=== PATIENT | female | born 1935 | race Caucasian/White ===

== ENCOUNTER 2018-12-10 04:13 | Observation (INO) ==
[2018-12-10] MEDS ORDERED: ASPIRIN PO ONE (04:17)
[2018-12-10] MEDS ORDERED: MORPHINE IV ONE (04:21)
[2018-12-10] MEDS ORDERED: NS 500 ML IV ONE (04:27)
[2018-12-10] MEDS ORDERED: ZOFRAN IV ONE (04:27)
[2018-12-10 04:44] LABS: BASO# 0.02 X1000 (0.0-0.2); BASO% 0.4 % (0.0-0.8); EOS# 0.26 X1000 (0.0-0.7); EOS% 5.3 % (0.0-10.0); HEMATOCRIT 37.9 % (37.0-47.0); HEMOGLOBIN 12.7 g/dL (12.0-16.0); LYMPH# 1.15 X1000 (1.2-3.4); LYMPH% 23.6 % (20.5-51.1); MCH 30.2 PG (27-31); MCHC 33.5 g/dL (33-37); MCV 90.2 FL (81-99); MONO# 0.44 X1000 (0.11-0.59); MPV 8.6 FL (7.4-10.4); NEUT# 3.01 X1000 (1.4-6.5); NEUT% 61.7 % (42.2-75.2); PLT 146 X1000 (130-400); RDW 13.2 % (11.5-14.5); WBC 4.88 X1000 (4.8-10.8)
[2018-12-10 04:58] LABS: INR 1.03; PROTIME 13.6 Seconds (11.0-16.0)
[2018-12-10 04:59] LABS: PTT 31.5 Seconds (22.3-41.8)
[2018-12-10 05:18] LABS: AGAP 11; ALB/GLOB RATIO 2.2; ALBUMIN 4.1 g/dL (3.5-5.0); ALKALINE PHOSPHATASE 49 U/L (32-104); BUN 15 mg/dL (8-22); CHLORIDE 104 mmol/L (98-107); CK PROFILE 59 U/L (24-173); COSMO 285; CREATININE 0.7 mg/dL (0.5-0.9); ESTIMATED GFR > 60; GLUCOSE 120 mg/dL (70-104); GOT 15 U/L (10-30); GPT < 5 U/L (10-36); POTASSIUM 3.3 mmol/L (3.5-5.1); SODIUM 142 mmol/L (136-145); TCO2 27 mmol/L (25-35); TOTAL BILIRUBIN 0.88 mg/dL (0.20-1.00)
--- NOTE | 2018-12-10 05:23 | EKG Report ---
Test Performed on : 12/10/2018 04:16:42 AM Test Reason : chest pain Blood Pressure : / mmHG Vent. Rate : 061 BPM Atrial Rate : 061 BPM P-R Int : 170 ms QRS Dur : 094 ms QT Int : 420 ms P-R-T Axes : 086 063 072 degrees QTc Int : 422 ms Sinus rhythm. with premature atrial complexes. Otherwise normal ECG When compared with ECG of 05-SEP-2014 15:51, Sinus rhythm. has replaced Atrial fibrillation. ST elevation has replaced ST depression in Anterior leads Unconfirmed Result
--- NOTE | 2018-12-10 06:07 | PROVIDER DOCUMENTATION ---
HPI-General Adult - General Chief Complaint: Chest Pain Stated Complaint: chest pain Time Seen by Provider: 12/10/18 04:18 Source: patient, family Allergies/Adverse Reactions: Patient Allergies Allergy/AdvReac Type Severity Reaction Status Date / Time methylprednisolone Allergy Severe AFIB Verified 12/10/18 05:28 [From Medrol] Penicillins AdvReac Severe RASH Verified 12/10/18 05:28 Home Medications: Home Medication List Medication Instructions Recorded Confirmed Last Taken Type NK [No Home Medications] 12/10/18 12/10/18 Unknown History - History of Present Illness -Gen Adult Nature of Presenting Problems: Pt presents with cp, started tonight, entire chest, radiation to jaw, sharp, associated with nausea, pt has pmh of afib but denies CAD, pt denies f/c, martin, sob, cough, ap, vomiting, diarrhea, Pt is lying in bed in no acute distress. Location of Pain/Injury: reports: chest Pain Radiation: reports: jaw Quality of Pain: reports: sharp Severity: reports: moderate Onset/Duration: reports: 1-3 hours ago Timing: reports: still present Context/Activities at Onset: reports: none Modifying Factors: improves with: nothing Associated Symptoms: reports: nausea Similar Symptoms Previously?: No Recently seen or treated by another doctor?: No Review of Systems - Adult - REVIEW OF SYSTEMS - ADULT Constitutional: reports: no symptoms reported Eyes: reports: no symptoms reported Ears, Nose, Mouth & Throat: reports: no symptoms reported Cardiovascular: reports: see HPI Respiratory: reports: no symptoms reported Gastrointestinal: reports: no symptoms reported Genitourinary: reports: no symptoms reported Musculoskeletal: reports: no symptoms reported Integumentary: reports: no symptoms reported Neurological: reports: no symptoms reported Psychiatric: reports: no symptoms reported Endocrine: reports: no symptoms reported Hematologic/Lymphatic: reports: no symptoms reported Allergic/Immunologic: reports: no symptoms reported All Other Systems: Reviewed and Negative Past History - Adult - PAST MEDICAL HISTORY-ADULT Review of Records: reports: Old Records Reviewed, Nursing Assessment Review, Medications Reviewed, Social history reviewed & non-contributory. Major Childhood Illnesses: reports: denies history Cardiovascular: reports: A-Fib, other (hiatal hernia) Respiratory: reports: denies history Gastrointestinal: reports: GERD Obstetrical/Gynecological: reports: denies history Genitourinary: reports: denies history Musculoskeletal: reports: denies history Neurological: reports: denies history Psychiatric: reports: denies history Endocrine/Immune: reports: denies history Other Conditions: reports: denies history - PRIOR SURGERIES/PROCEDURES Surgical/Procedure History: reports: other (cataract removal) - IMMUNIZATION STATUS Childhood Immunizations: See Nurse Assessment Flu Vaccine: See Nurse Assessment - FAMILY HISTORY Family History: reviewed, not pertinent Physical Exam-General - PHYSICAL EXAM-ADULT Initial Vital Signs Reviewed: Yes - CONSTITUTIONAL General Appearance: appears well - EYES Eyes: PERRL/EOMI - HEAD, EARS, NOSE, MOUTH & THROAT HENMT: normocephalic/atraumatic - NECK Neck: normal inspection - RESPIRATORY Respiratory: lungs clear, no respiratory distress, no accessory muscle use - CARDIOVASCULAR Cardiovascular: regular rate, rhythm - GASTROINTESTINAL (ABDOMEN) Abdominal Exam: non tender, soft - LYMPHATIC Lymphatic: no adenopathy - MUSCULOSKELETAL Back Exam: normal inspection Extremity: normal range of motion - SKIN Integumentary: normal color - NEUROLOGIC Neurologic: grossly normal - PSYCHIATRIC Psych/Mental Status: normal mood/affect Progress - PLAN OF CARE/RESULTS Progress/Plan/Lab Results: Vital Signs - 8 hr 12/10/18 04:25 Temperature 97.7 F Pulse Rate 68 Respiratory Rate 16 Blood Pressure 170/65 O2 Sat by Pulse Oximetry 96 Laboratory Results - last 24 hr 12/10/18 12/10/18 12/10/18 04:32 04:32 04:32 WBC 4.88 RBC 4.20 Hgb 12.7 Hct 37.9 MCV 90.2 MCH 30.2 MCHC 33.5 RDW Std Deviation 13.2 Plt Count 146 MPV 8.6 Immature Gran % (Auto) 0.0 Neut % (Auto) 61.7 Lymph % (Auto) 23.6 [place]ot % (Auto) 9.0 Eos % (Auto) 5.3 Baso % (Auto) 0.4 Immature Gran # (Auto) 0.00 Neut # (Auto) 3.01 Lymph # (Auto) 1.15 L [place] # (Auto) 0.44 Eos # (Auto) 0.26 Baso # (Auto) 0.02 PT INR PTT (Actin FS) Sodium 142 Potassium 3.3 L Chloride 104 Carbon Dioxide 27 Anion Gap 11 BUN 15 Creatinine 0.7 Estimated GFR/1.73 m2 > 60 BUN/Creatinine Ratio 21 Glucose 120 H Calculated Osmolality 285 Calcium 9.0 Total Bilirubin 0.88 AST 15 ALT < 5 L Alkaline Phosphatase 49 Creatine Kinase 59 Troponin T [facility] Pept 176 Total Protein 6.0 L Albumin 4.1 Globulin 1.9 Albumin/Globulin Ratio 2.2 12/10/18 12/10/18 04:32 04:32 WBC RBC Hgb Hct MCV MCH MCHC RDW Std Deviation Plt Count MPV Immature Gran % (Auto) Neut % (Auto) Lymph % (Auto) [place] % (Auto) Eos % (Auto) Baso % (Auto) Immature Gran # (Auto) Neut # (Auto) Lymph # (Auto) [place]ot # (Auto) Eos # (Auto) Baso # (Auto) PT 13.6 INR 1.03 PTT (Actin FS) 31.5 Sodium Potassium Chloride Carbon Dioxide Anion Gap BUN Creatinine Estimated GFR/1.73 m2 BUN/Creatinine Ratio Glucose Calculated Osmolality Calcium Total Bilirubin AST ALT Alkaline Phosphatase Creatine Kinase Troponin T 0.013 Yhl-J-Mwqasbbyhkv Pept Total Protein Albumin Globulin Albumin/Globulin Ratio Orders Category Date Time Status Cardiac Monitoring DIRECTED Care 12/10/18 04:17 Active Nursing- Obtain EKG ONCE Care 12/10/18 04:14 Active Oxygen Therapy- ED Nursing DIRECTED Care 12/10/18 04:17 Active Saline Loc NOW Care 12/10/18 04:17 Active CHEST-PORTABLE [RAD] Stat Exams 12/10/18 04:18 Taken CBC WITH ELECTRONIC DIFF [HEME] Stat Lab 12/10/18 04:32 Completed CK PROFILE [SP CHEM] Stat Lab 12/10/18 04:32 Completed COMPREHENSIVE METABOLIC PANEL [CHEM] Stat Lab 12/10/18 04:32 Completed PRO B-NATRIURETIC PEPTIDE Stat Lab 12/10/18 04:32 Completed PROTIME WITH INR [COAG] Stat Lab 12/10/18 04:32 Completed PTT [COAG] Stat Lab 12/10/18 04:32 Completed TROPONIN T Stat Lab 12/10/18 04:32 Completed 0.9% Sodium Chloride Inj [Ns] 500 ml Med 12/10/18 04:27 Discontinued IV 999 mls/hr Aspirin Med 12/10/18 04:17 Discontinued 325 mg PO NOW ONE Morphine Med 12/10/18 04:21 Discontinued 4 mg IV NOW ONE Ondansetron [Zofran] Med 12/10/18 04:27 Discontinued 4 mg IV NOW ONE CP/SOB/Palp >45 yrs of Age Stat Oth 12/10/18 04:17 Ordered EKG [EKG] Stat Ther 12/10/18 04:14 Draft Result Diagrams: 12/10/18 04:32 12/10/18 04:32 - CONSULTS/PCP/HOSPITALIST Notification #1 *Consult/PCP/Hospitalist*: Dr Ortega Time Discussed: 07:15 Consult Disposition: Will see in ED Departure - Departure Date of Disposition Decision: 12/10/18 Time of Disposition Decision: 07:22 DIAGNOSIS: Chest pain Disposition: ADMITTED INPATIENT 09 Certified Medical Emergency: Emergent Condition: Fair Referrals and Follow-Ups: Armand Ortega MD [Primary Care Provider] - - Critical Care Note This patient required my direct & personal management of CC.: No Attestation - Physician/ PERICO Attestation Patient care was provided by Advanced Practice Provider:: No The physician spent face to face time with patient:: Yes Advanced Practice Provider documentation review:: Supervising physician onsite and consulted in the evaluation and care of this patient. The physician did have a face to face encounter with the patient.
--- NOTE | 2018-12-10 06:40 | Diag Imaging Result Doc PS360 ---
CHEST-PORTABLE - 12/10/2018 INDICATION: chest pain COMPARISON: 02/03/2015 FINDINGS: Stable hyperexpanded lungs. No infiltrates or edema. Heart size is top normal. No large pleural effusion. Stable granuloma in the left upper lobe. IMPRESSION: COPD. Electronically signed by Rex Douglas 12/10/2018 6:38 AM
[2018-12-10] MEDS ORDERED: KLOR-CON PO ONE ×2 (08:24→14:13)
[2018-12-10] MEDS ORDERED: NS 1,000 ML IV ONE (08:28)
[2018-12-10] MEDS ORDERED: LOVENOX SUBQ SCH ×2 (09:25→14:00)
[2018-12-10 09:36] VITALS: BP 130/50
[2018-12-10] MEDS ORDERED: LOVENOX 1 MG/KG SUBQ ONE (13:41)
[2018-12-10] MEDS ORDERED: LOPRESSOR PO SCH (13:45)
[2018-12-10] MEDS ORDERED: NITROGLYCERIN TOP SCH (13:45)
--- NOTE | 2018-12-10 14:07 | EKG Report ---
Test Performed on : 12/10/2018 1:53:11 PM Test Reason : chest pain, NQWMI Blood Pressure : / mmHG Vent. Rate : 075 BPM Atrial Rate : 065 BPM P-R Int : 000 ms QRS Dur : 088 ms QT Int : 382 ms P-R-T Axes : 000 036 044 degrees QTc Int : 426 ms Accelerated Junctional rhythm. transitioning to sinus rhythm with PACs T wave abnormality, consider anterior ischemia or recent non-MANJULA VT Trace ST elevation V2 Abnormal ECG When compared with ECG of 10-DEC-2018 04:16, (Unconfirmed) Nonspecific T wave abnormality now evident in Inferior leads T wave inversion now evident in Anterior leads Confirmed by John OLIVER, Thony Rodarte ([id number]) on 12/11/2018 8:49:06 AM
--- NOTE | 2018-12-10 14:18 | CARDIOLOGY CONSULTATION ---
DATE: 12/10/2018 HISTORY OF PRESENT ILLNESS: An 83-year-old, lady who has been in good health. Came in with complaints of chest pain radiating to the jaw. The patient has abnormal cardiac enzymes. Cardiology was consulted. She is a healthy lady who, for the last week, has been having mild left-sided chest pain which she did not seek medical attention as it was mild. Subsequently, she went to bed last night. Woke up with severe chest pain and jaw pain, and generalized body ache associated with nausea, significant diaphoresis, and shortness of breath. She came to the emergency room and was admitted. Her first set of cardiac enzymes was normal. Second set of cardiac enzymes was abnormal. Electrocardiogram revealed normal sinus rhythm. There were no ST-T changes. Prior to this, episodes of chest discomfort were light, mild, without any radiation. They were intermittent. Currently, at the time of my examination, patient was pain free, though she says that she has had intermittent episodes of mild chest pain earlier today. REVIEW OF SYSTEMS: A 14-point review of systems was done. GI System: There is no history of vomiting. There is no history of hematemesis or melena. Central Nervous System: No focal weakness to suggest a CVA or TIA. System: There is no dysuria or hematuria. Respiratory System: There is no history of cough, expectoration, hemoptysis. There is no history of fevers or chills. ALLERGIES: She is allergic to penicillin and she says she had taken some steroid she is allergic to. PAST MEDICAL HISTORY: There is no history of hypertension, diabetes, or coronary artery disease. SOCIAL HISTORY: She does not drink. She smokes about a pack of cigarettes a week. FAMILY HISTORY: As far as family history is concerned, her father had coronary artery disease in his 60s. Her mother had coronary artery disease in her 70s. PHYSICAL EXAMINATION: On examination, blood pressure was 130/80. First and second heart sounds were heard. There was no S3 gallop. Respiratory System: Normal air entry. There were no crepitations or rhonchi. Abdomen was soft, nontender. There was no guarding or rigidity. Bowel sounds were heard. Central Nervous System: Alert and was moving all 4 extremities. Examination of the extremities revealed no pedal edema. HEENT: Atraumatic, normocephalic. Pupils were equal and reacting to light. LABORATORY EXAMINATION: Revealed sodium 142, potassium 3.3, BUN 15, creatinine 0.7. First troponin was normal at 0.013, second troponin abnormal at 0.81. WBC 4.8, hemoglobin 12.7, hematocrit 37.9, platelet count of 146,000. Chest x-ray was unremarkable for infiltrate. She had signs of COPD. ASSESSMENT AND PLAN: 1. Ms. Vee Long is an 83-year-old, lady who has non-Q wave myocardial infarction. We will put her on aspirin, beta blockers, Lovenox, and Lipitor. She has been healthy. There is no history of hypertension, diabetes, or coronary artery disease. She is a smoker. I explained to her in detail, recommended left heart catheterization. Patient would like to be transferred to [facility] for the procedure. We will plan for that. 2. We will get an echocardiogram to assess cardiac and valvular function. 3. We will repeat an EKG as well. 4. As far as other medications are concerned, I will also put her on nitroglycerin paste in addition to aspirin and beta blockers. Prior to transfer, we will give her Lovenox 1 mg/kg subcutaneous twice daily. Thank you for the consult. We will follow hospital course. cc: MD Marlen Sousa MD
--- NOTE | 2018-12-10 15:05 | Diag Imaging Result Document ---
PROCEDURE NAME: MYOCARDIAL PERFU SCAN, REST - 12/10/2018 PROCEDURE PERFORMED: Rest myocardial perfusion scan. INDICATION: Chest pain. PROCEDURE IN DETAIL: Ms. Long was brought to the nuclear laboratory and had a resting study with injection of 10.6 mCi of technetium-99m sestamibi with the usual imaging protocol utilized. FINDINGS: 1. There was no evidence of abnormal extracardiac uptake. 2. There is a fixed defect that is moderate in size, severe intensity, involving the anterior apical, inferior apical, as well as distal septal portions. This would suggest a lesion in the mid to distal LAD. No stress imaging was performed. 3. Normal ejection fraction of 53% with an end-diastolic volume of 77 and end-systolic volume of 36. There is an apical wall motion abnormality identified. cc: MD Marlen Ruiz MD
--- NOTE | 2018-12-10 17:16 | HISTORY AND PHYSICAL ---
CHIEF COMPLAINT: Chest pain. HISTORY OF PRESENT ILLNESS: Ms Vee Long is an 83-year-old lady with a history of senile osteoporosis, mixed hyperlipidemia, mild cognitive impairment and osteoporosis who is well known to me. She presented to the ER with vague chest discomfort in association with flushing and dizziness. She denied any radiation of pain to her neck or arm. Her initial cardiac enzymes were negative. She has had a previous Myoview GXT in the past that demonstrated no reversible ischemia. There is a very strong family history of heart disease. Her father of an LA at age 70. Her mother of an LA at age 79. At the time that I saw her, she was without any shortness of breath or chest pain. She had been given morphine by the ER physician. PAST MEDICAL HISTORY: As above. PAST SURGICAL HISTORY: Tonsillectomy with adenoidectomy, right breast biopsy. ALLERGIES: Penicillin. FAMILY HISTORY: Father had known hypertension and of an LA at age 70. Her mother of an LA at age 69. SOCIAL HISTORY: She continues to smoke. She does consume alcoholic beverages. She is . MEDICATIONS: Vitamin B12 injections monthly, Aricept 5 mg daily, Singulair 10 mg daily, Flonase nasal spray 1 spray to each nostril daily. REVIEW OF SYSTEMS: She denies any recent weight gain or weight loss.HEENT: She wears glasses. She is hard of hearing. CV: See HPI. Pulmonary: See HPI. GI: No reflux, dysphagia, melena, hematochezia, change in bowel habits or rectal bleeding. Endocrine: No polyuria, no polydipsia, no cold or heat intolerance. Skin: No easy bruisability. : No leakage of urine with coughing or laughing. Neuro: No migraines or seizures. Psychiatric: No history of depression. This is an elderly frail 83-year-old lady in no apparent distress. She is afebrile. Vital signs are stable. HEENT: Fundi with arteriolar wall thickening. Pupils equal, round, reactive to light. Extraocular eye movements intact. TMs without bullae. Neck: Supple. No masses, JVD or bruits CV: Regular rate and rhythm. Lungs: Clear. Abdomen: Soft, nontender with active bowel sounds. Extremities: Without edema. Skin: No palpable purpura. Neuro: Nonfocal. ASSESSMENT AND PLAN: Chest pain. I am going to admit Ms. Long to [facility]. We will treat her with topical nitrates, subcu Lovenox and will rule her out for myocardial ischemia by serial enzymes. Her initial enzymes are negative. We will proceed with a Persantine Myoview GXT with rest stress protocol. Further recommendations will be made based upon those results. Given her clinical presentation and comorbid conditions, I believe that admission to the hospital for further evaluation and management of her chest pain is indicated. At this point in time I anticipate that she will be in the hospital for at least 1 midnight and I will therefore place her in outpatient status with observation services. cc: Marlen Ortega MD
[2018-12-10] MEDS ORDERED: LIPITOR PO SCH (21:00)
[2018-12-11] MEDS ORDERED: ASPIRIN PO SCH (09:00)
--- NOTE | 2018-12-11 12:47 | ECHO REPORT ---
ORDER DATE: 12/10/2018 INDICATION FOR THE PROCEDURE: Non-ST elevation IN. FINDINGS: 1. Right atrium appears normal in size. 2. Moderate tricuspid regurgitation. RV systolic pressure of 52. 3. Normal RV size and systolic function. 4. No significant pulmonic insufficiency. 5. Mild left atrial enlargement with a volume index of 31. 6. No mitral valve prolapse. Mild mitral regurgitation. No mitral stenosis. 7. Left ventricle appears normal in size with an end-diastolic dimension of 4.1. There is mild left ventricular hypertrophy with an intraventricular septal wall thickness of 1.2 cm. The estimated ejection fraction is around 40%. There is akinesis and, in some views, dyskinesis of the anterior septum and apex. 8. Aortic valve opens well. No stenosis. Trace insufficiency. 9. Aorta appears normal in visualized segments. 10. No pericardial effusion seen. cc: MD Elaine Ruiz PA M. Neel Roberts, MD
== END 2018-12-10 16:00 | disposition short-term general hospital (02) ==
LOC: SUPCPDRO → 3N 04:13 → ED 04:13
PROVIDERS: ADMIT Internal Medicine; ATTEND Internal Medicine